=== PATIENT | female | born 1960 | race Caucasian/White ===

== ENCOUNTER 2024-04-01 00:45 | Day surgery (SDC) | payer BC, SELFPAY ==
[2024-03-25 14:46] VITALS: BMI 31.1
--- NOTE | 2024-03-25 15:20 | PC.NURSE ---
Report to the Outpatient Waiting Room, entrance under the green pavilion located off [facility], at time __1145 on date _04/01/24 . Planned Procedure Time: __1345 . Time changes happen often and if your time is changed the preop area will call you the afternoon before. - You and your visitor will be asked to self-screen and do not enter if you have any COVID symptoms. - A mask is optional within the hospital at this time. Patients may have clear liquids (water, carbonated beverages, clear teas, apple juice) until 3 hours prior to surgery with a maximum of 20 ounces. - No food from midnight until time of surgery Take the following medications with a SIP of water the morning of surgery: ___NONE DO NOT STOP ANY OF YOUR OTHER PRESCRIPTION MEDICATIONS PRIOR TO SURGERY ?EXCEPT THE FOLLOWING Medications to discontinue per physician DAVIS__PLEASE HOLD 03/28/24 DOSE Date to take last dose Please no make-up, nail english, hairspray, perfume, deodorant, or body powder the day of surgery. No jewelry (including any body piercings) or valuables the day of surgery, leave them at home. Please take a shower or bath the night before, or the morning of, surgery with an antibacterial soap. Wear comfortable, loose fitting clothing. - Jewelry must be removed prior to entering the operating room. Rings and piercings that are not removed may be cut off. - The hospital will not accept responsibility for valuables. - Please leave all valuables, including medications, at home the day of surgery. If you are going home after surgery, a licensed dray truck driver must drive you home. - NO public transportation without another adult if you receive anesthesia. - We recommend that an adult stay with you for 24 hours following discharge. - We also recommend that you do not drive, make important decision, drink alcoholic beverages, or take any drugs that were not prescribed by your health care provider for at least 24 hours after your discharge time. Follow any additional instructions given to you from your surgeon. If you or anyone in your household have experienced Covid symptoms in the past week, please notify your surgeon or the nurse liaison at the phone number below for possible testing. Telephone instructions given to __ANNETTE and asked if any additional questions and then verbalized understanding. Patient advised to call surgeon office or pre surgery nurse liaison [phone] if any additional questions.
--- NOTE | 2024-04-01 07:17 | P.HP_ITS ---
History of Present Illness History of Present Illness Consent: Risks, benefits, and alternatives have been discussed and questions answered. Patient agrees to proceed with procedure. Chief complaint: Thickened Endometrium Narrative: Kassie Benz is a 63 year old female status post CT scan that revealed a thickened endometrium. Patient denies vaginal bleeding. The patient reports new family history at her follow-up visit of a sister with a history of e ndometrial hyperplasia. It was recommended to undergo workup with D&C hysteroscopy. Risks of infection, bleeding, perforation, and possible pathology are discussed. Patient voices understanding and agrees to proceed. Review of Systems Review of Systems: not repeated day of surgery; patient states no changes in status [facility] Past Medical History Medical History (Updated 04/01/24 @ 07:20 by Rhonda Gregory MD) History of kidney stones (normal spontaneous vaginal delivery) Subclinical hypothyroidism Social History Social History Smoking status: Never smoker Alcohol intake: current Substance use: never Substance use type: does not use Living arrangements: with family Spiritual care concerns: No Meds Home Medications and Allergies Home Medications Medication Instructions Recorded Confirmed Type cholecalciferol (vitamin D3) 50 50 mcg PO DAILY 03/25/24 03/25/24 History mcg (2,000 unit) tablet (Vitamin D3) estradiol-norethindrone acet 1 1 tablet PO DAILY 03/25/24 03/25/24 History mg-0.5 mg tablet ibandronate 150 mg tablet 150 mg PO MONTHLY 03/25/24 03/25/24 History levothyroxine 100 mcg tablet 100 mcg PO HS 03/25/24 03/25/24 History (Synthroid) potassium citrate 15 mEq (1,620 15 meq PO BID 03/25/24 03/25/24 History mg) tablet,extended release semaglutide (weight loss) 2.4 2.4 mg subcut WEEKLY 03/25/24 03/25/24 History mg/0.75 mL subcutaneous pen injector (Saloni) timolol maleate 0.25 % eye drops 1 drp EACH EYE DAILY 03/25/24 03/25/24 History Allergies Allergy/AdvReac Type Severity Reaction Status Date / Time shellfish derived Allergy Mild Swelling Verified 03/25/24 15:19 of Lip/Tongue/Throat Exam Const: General: healthy appearing and alert Orientation/consciousness: patient oriented x3 Resp: Effort & Inspection: normal respiratory effort : External Female Exam: normal external appearance Speculum Exam - Vagina: normal appearance of the vagina and normal vaginal discharge Speculum Exam - Cervix: normal appearance of the cervix Bimanual exam- vagina & uterus: uterine size normal and consistency normal Bimanual Exam- Adnexa, other: normal adnexae and No adnexal tenderness Neuro: General: patient oriented x3 Assessment and Plan Assessment and plan (1) Thickened endometrium: Code(s): R93.89 - Abnormal findings on diagnostic imaging of other specified body structures Status: Acute Assessment and Plan: plan to proceed with D&C hysteroscopy
--- NOTE | 2024-04-01 07:17 | WPDHPUPDATE1 ---
History and Physical Update Update Date/Time: 04/01/24 07:17 History and Physical has been reviewed, including an updated exam of the patient. There are NO changes in the patient's condition. Risks, benefits, and alternatives have been discussed and questions answered. Patient agrees to proceed with procedure.
[2024-04-01 11:30] VITALS: BP 105/84; PULSE 80; RESP 18; TEMP 37.4; O2SAT 100
--- NOTE | 2024-04-01 11:31 | P.PNAN_ITS ---
Anes - Initial Pre Proc Eval Procedure: Operation Date: 04/01/24 13:00 Proposed Procedures p Hysteroscopy Dilation and Curettage - Rhonda Gregory MD Date/Time: 04/01/24 11:31 Surgeon: Rhonda Gregory MD Pre Op Diagnosis: Thickened Endometrium Patient Data Age: 63 Gender: F Height: 1.7 m Weight: 90.4 kg Allergies Allergy/AdvReac Type Severity Reaction Status Date / Time shellfish derived Allergy Mild Swelling Verified 03/25/24 15:19 of Lip/Tongue/Throat Home Medications Medication Instructions Recorded Confirmed Type cholecalciferol (vitamin D3) 50 50 mcg PO DAILY 03/25/24 03/25/24 History mcg (2,000 unit) tablet (Vitamin D3) estradiol-norethindrone acet 1 1 tablet PO DAILY 03/25/24 03/25/24 History mg-0.5 mg tablet ibandronate 150 mg tablet 150 mg PO MONTHLY 03/25/24 03/25/24 History levothyroxine 100 mcg tablet 100 mcg PO HS 03/25/24 03/25/24 History (Synthroid) potassium citrate 15 mEq (1,620 15 meq PO BID 03/25/24 03/25/24 History mg) tablet,extended release semaglutide (weight loss) 2.4 2.4 mg subcut WEEKLY 03/25/24 03/25/24 History mg/0.75 mL subcutaneous pen injector (Wegovy) timolol maleate 0.25 % eye drops 1 drp EACH EYE DAILY 03/25/24 03/25/24 History Patient hx anesthesia problems: none Family hx anesthesia problems: none Results Review: All pre-operative results and documents have been reviewed as part of the pre- operative evaluation. [facility] Past Medical History Medical History (Updated 04/01/24 @ 07:20 by Rhonda Gregory MD) History of kidney stones (normal spontaneous vaginal delivery) Subclinical hypothyroidism Social History Social History Smoking status: Never smoker Alcohol intake: current Substance use: never Substance use type: does not use Living arrangements: with family Spiritual care concerns: No Anes - Eval Final PreProcedure Day of Procedure 04/01/24 11:31 Patient weight: obese Airway: Mallampati scale class II ASA classification: II Anesthesia type and monitoring: general GIVS and standard monitoring Results Review: All pre-operative results and documents have been reviewed as part of the pre- operative evaluation. Informed Consent: The patient's anesthetic plan and its attendant risks and benefits were discussed with the patient/family/POA. Questions were solicited and answers provided to the satisfaction of the patient/family/POA.
[2024-04-01] MEDS: ACETAMINOPHEN 500 MG TABLET 1000 MG PO (12:00)
[2024-04-01] MEDS: LACTATED RINGERS 1,000 ML 30 ML IV CONT (12:00)
[2024-04-01 13:00] VITALS: BP 101/57; PULSE 74; RESP 16; O2SAT 94
--- NOTE | 2024-04-01 13:00 | P.OP_ITS ---
Procedure Note - Detailed Date of Procedure 04/01/24 Pre-op Diagnosis Thickened Endometrium Post-op Diagnosis Same Procedure Performed D&C hysteroscopy Surgeon Rhonda Gregory MD Anesthesia MAC Findings posterior cervix is flush with the vagina external cervical stenosis internals cervical stenosis uterus sounds to 8cm grossly atrophic appearing Description of Procedure The patient is taken to the operating room and placed under anesthesia in the d orsal lithotomy position. She was prepped and draped in the usual sterile fashion. Herculaneum speculum was placed in the vagina and the cervix noted to be very flush with the vagina on the posterior lip. The os is scarred shut. The anterior lip is grasped with a tenaculum giving a little more definition to the anatomy. The os Finders will not pass the external os. The small Hegar dilator will pass the external os approximately 2cm into the cervix. Mucus is released. The os Finders are again utilized and unable to enter the internal cavity. The Hegar dilators were again used and unable to enter the cavity. The 11 blade scalpel is used to singh-cross the pinpoint os. The os Finders are again utilized and unable to enter the cavity. The Hegar dilators were again used and the cavity is able to be entered. It is very disoriented pointing up into the left. The cervix is dilated to a 5 Hegar. The uterus is then sounded to 8cm. The diagnostic hysteroscope is placed with hydro dissection. What appears to be the endometrial cavity has no gross abnormalities. Hysteroscope was removed and cervix is visualized as the hysteroscope was removed with no additional openings visible. The sharp OO curette used to curette the endometrium. All instruments are removed. Sponge, needle, and instrument counts are correct per the OR staff. The patient is taken to recovery in stable condition. Estimated Blood Loss 5 Drains No Packing No Pathology Yes ( Endometrial curettings) Complications No immediate complications Condition Stable Disposition PACU
[2024-04-01 13:30] VITALS: BP 108/50; PULSE 70; RESP 16
[2024-04-01 13:57] VITALS: BP 107/52; PULSE 61; RESP 16
== END 2024-04-01 13:58 | disposition home or self-care (01) ==
PROVIDERS: PCP Family Medicine; Visit Provider Obstetrics & Gynecology Gynecology
PROC: 0U5B8ZZ Destruction of Endometrium, Via Natural or Artificial Opening Endoscopic (ICD-10-PCS; CPT 58563; principal; 2024-04-01 13:00)
DX: R93.89 Abnormal findings on diagnostic imaging of other specified body structures (principal); N85.8 Other specified noninflammatory disorders of uterus; E66.9 Obesity, unspecified; Z68.30 Body mass index [BMI] 30.0-30.9, adult; Z87.442 Personal history of urinary calculi; E03.8 Other specified hypothyroidism; Z79.83 Long term (current) use of bisphosphonates; Z79.85 Long-term (current) use of injectable non-insulin antidiabetic drugs
CPT/HCPCS: 58558; 88305; A9270; J1100; J2250; J2405; J2704; J3010; J7120